=== PATIENT | female | born 1960 | race Caucasian/White ===

== ENCOUNTER → 2020-12-05 | Emergency (ER) | payer OTHER, MEDICAID ==
[~2020-12-05] VITALS: Ht 152.4 cm; Wt 133.8 kg
[~2020-12-05] MED LIST: AMITRIPTYLINE100 MG PO; BACLOFEN 10MG T10 MG PO; BACTRIM DS TAB1 EACH PO; BENADRYL25 MG PO; CATAFLAM50 MG PO; DITROPAN XL10 M1 PO; FLEXERIL PO; GABAPENTIN800 M1 PO; HYDROCODON-ACE1 EAC8 PO; KLOR-CON M2020 MEQ PO; LASIX 40 MG TAB40 MG PO; NAPROXEN 500MG500 MG PO; ONZETRA XSAIL11 MG PO; OXYBUTYNIN 5 MG5 M2 PO; PERCOCET 5-3251 EACH PO; PROAIR HFA8.5 GM INH; PROTONIX40 M2 PO; PYRIDIUM200 MG PO; STOOL SOFTENER100 MG PO; TOPROL XL25 MG PO; TRAMADOL 50 MG50 MG PO; VALIUM2 MG PO; VICODIN 5-5001 EACH PO
[2020-12-06 01:28] VITALS: BP 125/63
== END ==
LOC: M.ERS 21:39
DX: M25.512 Pain in left shoulder (principal); M79.652 Pain in left thigh; M54.2 Cervicalgia; Z88.1 Allergy status to other antibiotic agents; Z88.5 Allergy status to narcotic agent; Z90.710 Acquired absence of both cervix and uterus; Z98.890 Other specified postprocedural states; W01.0XXA Fall on same level from slipping, tripping and stumbling without subsequent striking against object, initial encounter; Y93.89 Activity, other specified; Y92.89 Other specified places as the place of occurrence of the external cause; Y99.8 Other external cause status